=== PATIENT | female | born 1940 | race African-American/Black ===

== ENCOUNTER 2023-03-03 13:31 | Inpatient (IN) | payer OTHER ==
[2023-03-03 17:20] LABS: BASO % 0.6 % (0-2.0); EOS % 0.7 % (0-4.5); HEMATOCRIT 22.3 % (32.4-45.2); HEMOGLOBIN 7.2 GM/dL (10.7-15.3); LYMPH % 16.4 % (8-40); MCHC 32.4 g/dl (32.0-36.0); MEAN CELL VOLUME 92.7 fl (80-96); MEAN PLT VOLUME 6.9 fl (7.5-11.1); MONO % 9.9 % (3.8-10.2); NEUT % 72.4 % (42.8-82.8); PLATELET COUNT 223 10^3/uL (134-434); RDW 16.8 % (11.6-15.6)
[2023-03-03 17:27] LABS: INR 1.31 (0.83-1.09); PROTHROMBIN TIME (PATIENT) 15.1 SEC (9.7-13.0)
[2023-03-03 17:30] LABS: ACTIVATED PTT 27.7 SECONDS (25.2-36.5)
[2023-03-03 17:41] LABS: POTASSIUM 3.4 mmol/L (3.5-5.1)
[2023-03-03 17:43] LABS: ALBUMIN 2.3 g/dl (3.4-5.0); BLOOD UREA NITROGEN 38.2 mg/dL (7-18); CALCIUM 8.3 mg/dL (8.5-10.1)
[2023-03-03 17:46] LABS: CREATININE 4.3 mg/dL (0.55-1.3)
[2023-03-03 17:48] LABS: BILIRUBIN,TOTAL 0.7 mg/dL (0.2-1); TOT PROT 5.8 g/dl (6.4-8.2)
[2023-03-03] MEDS ORDERED: VANCOMYCIN 1 GM in D5W (PRE-DOCKED) 1,000 MG/250 ML (RESTRICTED TO ID ONLY IVPB ONE (18:14)
[2023-03-03] MEDS ORDERED: VANCOMYCIN/WATER FOR INJ (PEG) 1,000 MG/200 ML BAG IVPB ONE ×2 (20:57→20:58)
[2023-03-04 10:21] LABS: BASO % 0.7 % (0-2.0); HEMATOCRIT 15.9 % (32.4-45.2); LYMPH % 21.3 % (8-40); MCH 30.8 pg (25.7-33.7); MCHC 33.6 g/dl (32.0-36.0); MEAN CELL VOLUME 91.6 fl (80-96); MEAN PLT VOLUME 7.2 fl (7.5-11.1); MONO % 11.5 % (3.8-10.2); NEUT % 65.5 % (42.8-82.8); PLATELET COUNT 229 10^3/uL (134-434); RBC 1.74 M/mm3 (3.60-5.2); RDW 16.4 % (11.6-15.6); WHITE BLOOD COUNT 3.9 K/mm3 (4.0-10.0)
[2023-03-04 10:26] LABS: HEMOGLOBIN 5.4 GM/dL (10.7-15.3)
[2023-03-04 10:46] LABS: POTASSIUM 3.7 mmol/L (3.5-5.1)
[2023-03-04 10:47] LABS: CALCIUM 8.6 mg/dL (8.5-10.1)
[2023-03-04 10:48] LABS: BLOOD UREA NITROGEN 40.5 mg/dL (7-18)
[2023-03-04 10:51] LABS: CREATININE 4.6 mg/dL (0.55-1.3)
[2023-03-04] MEDS ORDERED: BISACODYL 10 MG SUPP.RECT PR PRN (11:47)
[2023-03-04] MEDS: PIPERACILLIN/TAZOB 2.25 GM 2.25 GM in DEXTROSE 5%-WATER - 50 ML IVPB SCH ×2 (13:30→17:04)
[2023-03-04] MEDS: MIRTAZAPINE 15 MG TABLET (FP) PO SCH (21:57)
[2023-03-04] MEDS: MEMANTINE HCL 5 MG TABLET (UD) PO SCH (21:57)
[2023-03-04] MEDS: LATANOPROST 0.005% OPHTH SOLN 2.5ML BOTTLE OU SCH (21:57)
[2023-03-04] MEDS: DORZOLAMIDE 2% HCL OPHTHALMIC SOLUTION 10 ML BOTTLE OD SCH (21:58)
[2023-03-04] MEDS: BRIMONIDINE TARTRATE 0.1% OPHTHALMIC 5 ML BOTTLE OD SCH (21:58)
[2023-03-04] MEDS: MEGESTROL ACETATE 400 MG/10 ML UNIT DOSE CUP PO SCH (22:16)
[2023-03-05] MEDS: PIPERACILLIN/TAZOB 2.25 GM 2.25 GM in DEXTROSE 5%-WATER - 50 ML IVPB SCH ×3 (01:40→17:39)
[2023-03-05] MEDS ORDERED: SODIUM CHLORIDE 250 ML IV PRN (08:00)
[2023-03-05] MEDS ORDERED: EPOETIN ALFA-EPBX 10,000 UNIT/ML VIAL SQ ONE (08:00)
[2023-03-05 09:00] LABS: HEMATOCRIT 26.7 % (32.4-45.2); HEMOGLOBIN 8.8 GM/dL (10.7-15.3); MCH 29.8 pg (25.7-33.7); MCHC 33.1 g/dl (32.0-36.0); MEAN CELL VOLUME 89.9 fl (80-96); MEAN PLT VOLUME 6.6 fl (7.5-11.1); PLATELET COUNT 215 10^3/uL (134-434); RBC 2.96 M/mm3 (3.60-5.2); RDW 16.2 % (11.6-15.6); WHITE BLOOD COUNT 3.9 K/mm3 (4.0-10.0)
[2023-03-05 10:04] LABS: ANISOCYTOSIS 0; HELMET CELLS 0; HOWELL-JOLLY BODIES 0; MACROCYTOSIS 0; OVALOCYTE 0; ROULEAU 0; SICKELED CELLS 0; TARGET CELLS 0; TEAR DROP CELLS 0; TOXIC GRANULATION 0
[2023-03-05] MEDS: CITALOPRAM HYDROBROMIDE 20 MG TABLET PO SCH (12:17)
[2023-03-05] MEDS: MEMANTINE HCL 5 MG TABLET (UD) PO SCH ×2 (12:17→21:45)
[2023-03-05] MEDS: DORZOLAMIDE 2% HCL OPHTHALMIC SOLUTION 10 ML BOTTLE OD SCH ×2 (12:18→21:48)
[2023-03-05] MEDS: BRIMONIDINE TARTRATE 0.1% OPHTHALMIC 5 ML BOTTLE OD SCH ×2 (12:18→21:48)
[2023-03-05] MEDS: MEGESTROL ACETATE 400 MG/10 ML UNIT DOSE CUP PO SCH ×2 (12:22→21:47)
[2023-03-05] MEDS: ASCORBIC ACID 250 MG TABLET (FP) PO SCH (12:22)
[2023-03-05] MEDS: MULTIVIT-MINERALS ORAL LIQUID PO SCH (13:00)
[2023-03-05] MEDS: MIRTAZAPINE 15 MG TABLET (FP) PO SCH (21:45)
[2023-03-05] MEDS: LATANOPROST 0.005% OPHTH SOLN 2.5ML BOTTLE OU SCH (21:49)
[2023-03-06] MEDS: PIPERACILLIN/TAZOB 2.25 GM 2.25 GM in DEXTROSE 5%-WATER - 50 ML IVPB SCH ×3 (02:06→17:03)
[2023-03-06] MEDS ORDERED: INSULIN (LEVEMIR) 100 UNITS/ML UNITS SQ ONE (06:41)
[2023-03-06] MEDS: MEMANTINE HCL 5 MG TABLET (UD) PO SCH ×2 (09:50→22:03)
[2023-03-06] MEDS: CITALOPRAM HYDROBROMIDE 20 MG TABLET PO SCH (09:51)
[2023-03-06] MEDS: ASCORBIC ACID 250 MG TABLET (FP) PO SCH (09:51)
[2023-03-06] MEDS: MULTIVIT-MINERALS ORAL LIQUID PO SCH (09:51)
[2023-03-06] MEDS: MEGESTROL ACETATE 400 MG/10 ML UNIT DOSE CUP PO SCH ×2 (09:52→22:03)
[2023-03-06] MEDS: DORZOLAMIDE 2% HCL OPHTHALMIC SOLUTION 10 ML BOTTLE OD SCH ×2 (09:57→22:04)
[2023-03-06] MEDS: BRIMONIDINE TARTRATE 0.1% OPHTHALMIC 5 ML BOTTLE OD SCH ×2 (09:57→22:05)
[2023-03-06] MEDS: MIRTAZAPINE 15 MG TABLET (FP) PO SCH (22:03)
[2023-03-06] MEDS: LATANOPROST 0.005% OPHTH SOLN 2.5ML BOTTLE OU SCH (22:05)
[2023-03-06 22:55] VITALS: BMI 19.4
[2023-03-07] MEDS: PIPERACILLIN/TAZOB 2.25 GM 2.25 GM in DEXTROSE 5%-WATER - 50 ML IVPB SCH ×3 (02:18→18:02)
[2023-03-07 09:29] LABS: EOS % 1.4 % (0-4.5); HEMOGLOBIN 8.7 GM/dL (10.7-15.3); LYMPH % 15.9 % (8-40); MCH 30.9 pg (25.7-33.7); MCHC 33.6 g/dl (32.0-36.0); MEAN CELL VOLUME 92.2 fl (80-96); MONO % 10.4 % (3.8-10.2); NEUT % 71.3 % (42.8-82.8); PLATELET COUNT 183 10^3/uL (134-434); RBC 2.82 M/mm3 (3.60-5.2); WHITE BLOOD COUNT 4.4 K/mm3 (4.0-10.0)
[2023-03-07 09:48] LABS: POTASSIUM 3.5 mmol/L (3.5-5.1)
[2023-03-07 10:09] LABS: CREATININE 4.3 mg/dL (0.55-1.3)
[2023-03-07] MEDS: MEMANTINE HCL 5 MG TABLET (UD) PO SCH ×2 (10:25→22:41)
[2023-03-07] MEDS: ASCORBIC ACID 250 MG TABLET (FP) PO SCH (10:25)
[2023-03-07] MEDS: MEGESTROL ACETATE 400 MG/10 ML UNIT DOSE CUP PO SCH ×2 (10:26→22:40)
[2023-03-07] MEDS: MULTIVIT-MINERALS ORAL LIQUID PO SCH (10:26)
[2023-03-07] MEDS: CITALOPRAM HYDROBROMIDE 20 MG TABLET PO SCH (10:26)
[2023-03-07] MEDS: DORZOLAMIDE 2% HCL OPHTHALMIC SOLUTION 10 ML BOTTLE OD SCH ×2 (10:32→22:40)
[2023-03-07] MEDS: BRIMONIDINE TARTRATE 0.1% OPHTHALMIC 5 ML BOTTLE OD SCH ×2 (10:32→22:40)
[2023-03-07] MEDS ORDERED: LIDOCAINE HCL 1%, 10 MG/ML (10ML VIAL) MDV ONE (17:57)
[2023-03-07] MEDS ORDERED: HEPARIN NA (PORCINE) 5,000 UNITS/ML 1ML VIAL ONE (17:57)
[2023-03-07] MEDS ORDERED: PROPOFOL 20 ML ONE (18:49)
[2023-03-07] MEDS ORDERED: LIDOCAINE HCL 1%, 10 MG/ML (20ML VIAL) NR ONE (19:03)
[2023-03-07] MEDS ORDERED: ONDANSETRON 4 MG/2 ML VIAL IVPUSH PRN (19:48)
[2023-03-07] MEDS ORDERED: LACTATED RINGERS SOLUTION 1,000 ML IV SCH (20:00)
[2023-03-07] MEDS ORDERED: BISACODYL 10 MG SUPP.RECT PR PRN (20:49)
[2023-03-07] MEDS: LATANOPROST 0.005% OPHTH SOLN 2.5ML BOTTLE OU SCH (22:40)
[2023-03-07] MEDS: MIRTAZAPINE 15 MG TABLET (FP) PO SCH (22:41)
[2023-03-08] MEDS: PIPERACILLIN/TAZOB 2.25 GM 2.25 GM in DEXTROSE 5%-WATER - 50 ML IVPB SCH ×2 (01:14→10:00)
[2023-03-08] MEDS ORDERED: INSULIN (LEVEMIR) 100 UNITS/ML UNITS SQ ONE (06:49)
[2023-03-08] MEDS ORDERED: INSULIN (NOVOLOG) ASPART 100 UNITS/ML 10ML VIAL ONE (06:49)
[2023-03-08] MEDS ORDERED: SODIUM CHLORIDE 250 ML IV PRN (08:21)
[2023-03-08] MEDS ORDERED: EPOETIN ALFA-EPBX 4,000 UNIT/ML VIAL IVPUSH ONE (09:15)
[2023-03-08] MEDS: DORZOLAMIDE 2% HCL OPHTHALMIC SOLUTION 10 ML BOTTLE OD SCH ×2 (10:00→22:01)
[2023-03-08] MEDS: CITALOPRAM HYDROBROMIDE 20 MG TABLET PO SCH (10:00)
[2023-03-08] MEDS: ASCORBIC ACID 250 MG TABLET (FP) PO SCH (10:00)
[2023-03-08] MEDS: BRIMONIDINE TARTRATE 0.1% OPHTHALMIC 5 ML BOTTLE OD SCH ×2 (10:00→22:01)
[2023-03-08] MEDS: MEGESTROL ACETATE 400 MG/10 ML UNIT DOSE CUP PO SCH ×2 (10:00→22:00)
[2023-03-08] MEDS: MULTIVIT-MINERALS ORAL LIQUID PO SCH (10:00)
[2023-03-08] MEDS: MEMANTINE HCL 5 MG TABLET (UD) PO SCH ×2 (10:00→21:59)
[2023-03-08] MEDS: MIRTAZAPINE 15 MG TABLET (FP) PO SCH (22:00)
[2023-03-08] MEDS: LATANOPROST 0.005% OPHTH SOLN 2.5ML BOTTLE OU SCH (22:01)
[2023-03-09] MEDS: CITALOPRAM HYDROBROMIDE 20 MG TABLET PO SCH (09:59)
[2023-03-09] MEDS: MEMANTINE HCL 5 MG TABLET (UD) PO SCH ×2 (09:59→22:38)
[2023-03-09] MEDS: ASCORBIC ACID 250 MG TABLET (FP) PO SCH (09:59)
[2023-03-09] MEDS: MULTIVIT-MINERALS ORAL LIQUID PO SCH (10:00)
[2023-03-09] MEDS: BRIMONIDINE TARTRATE 0.1% OPHTHALMIC 5 ML BOTTLE OD SCH ×2 (10:02→22:41)
[2023-03-09] MEDS: DORZOLAMIDE 2% HCL OPHTHALMIC SOLUTION 10 ML BOTTLE OD SCH ×2 (10:03→22:41)
[2023-03-09] MEDS: MEGESTROL ACETATE 400 MG/10 ML UNIT DOSE CUP PO SCH ×2 (11:39→22:44)
[2023-03-09] MEDS: MIRTAZAPINE 15 MG TABLET (FP) PO SCH (22:39)
[2023-03-09] MEDS: LATANOPROST 0.005% OPHTH SOLN 2.5ML BOTTLE OU SCH (22:40)
[2023-03-10] MEDS ORDERED: SODIUM CHLORIDE 250 ML IV PRN (07:26)
[2023-03-10] MEDS ORDERED: EPOETIN ALFA-EPBX 10,000 UNIT/ML VIAL IVPUSH ONE (07:30)
[2023-03-10 09:31] LABS: HEMATOCRIT 23.9 % (32.4-45.2); HEMOGLOBIN 7.8 GM/dL (10.7-15.3); MCHC 32.7 g/dl (32.0-36.0); MEAN CELL VOLUME 91.8 fl (80-96); PLATELET COUNT 175 10^3/uL (134-434); RDW 16.2 % (11.6-15.6); WHITE BLOOD COUNT 3.9 K/mm3 (4.0-10.0)
[2023-03-10 09:48] LABS: CHLORIDE 104 mmol/L (98-107); POTASSIUM 3.1 mmol/L (3.5-5.1); SODIUM 144 mmol/L (136-145)
[2023-03-10 09:50] LABS: CALCIUM 8.9 mg/dL (8.5-10.1)
[2023-03-10 09:51] LABS: ALBUMIN 2.3 g/dl (3.4-5.0); ANION GAP 8 MMOL/L (8-16); BLOOD UREA NITROGEN 27.8 mg/dL (7-18); CO2 31 mmol/L (21-32); GLUCOSE,RANDOM 110 mg/dL (74-106)
[2023-03-10 09:54] LABS: SGOT/AST 9 U/L (15-37); SGPT/ALT < 6 U/L (13-61)
[2023-03-10 09:55] LABS: TOT PROT 5.6 g/dl (6.4-8.2)
[2023-03-10 09:56] LABS: BILIRUBIN,TOTAL 0.7 mg/dL (0.2-1)
[2023-03-10 09:57] LABS: ALK PHOS 45 U/L (45-117)
[2023-03-10] MEDS: ASCORBIC ACID 250 MG TABLET (FP) PO SCH (13:57)
[2023-03-10] MEDS: CITALOPRAM HYDROBROMIDE 20 MG TABLET PO SCH (13:57)
[2023-03-10] MEDS: MULTIVIT-MINERALS ORAL LIQUID PO SCH (13:57)
[2023-03-10] MEDS: MEMANTINE HCL 5 MG TABLET (UD) PO SCH ×2 (13:58→21:22)
[2023-03-10] MEDS: DORZOLAMIDE 2% HCL OPHTHALMIC SOLUTION 10 ML BOTTLE OD SCH ×2 (13:59→21:22)
[2023-03-10] MEDS: BRIMONIDINE TARTRATE 0.1% OPHTHALMIC 5 ML BOTTLE OD SCH ×2 (13:59→21:22)
[2023-03-10] MEDS: MEGESTROL ACETATE 400 MG/10 ML UNIT DOSE CUP PO SCH ×2 (13:59→21:22)
[2023-03-10] MEDS: MIRTAZAPINE 15 MG TABLET (FP) PO SCH (21:22)
[2023-03-10] MEDS: LATANOPROST 0.005% OPHTH SOLN 2.5ML BOTTLE OU SCH (21:22)
[2023-03-11] MEDS: MEGESTROL ACETATE 400 MG/10 ML UNIT DOSE CUP PO SCH ×2 (09:27→22:59)
[2023-03-11] MEDS: MEMANTINE HCL 5 MG TABLET (UD) PO SCH ×2 (09:27→22:13)
[2023-03-11] MEDS: AMINO ACIDS/PROTEIN HYDROLYS 30 ML LIQUID.PKT PO SCH ×2 (09:27→17:09)
[2023-03-11] MEDS: CITALOPRAM HYDROBROMIDE 20 MG TABLET PO SCH (09:27)
[2023-03-11] MEDS: MULTIVIT-MINERALS ORAL LIQUID PO SCH (09:27)
[2023-03-11] MEDS: ASCORBIC ACID 250 MG TABLET (FP) PO SCH (09:27)
[2023-03-11] MEDS: DORZOLAMIDE 2% HCL OPHTHALMIC SOLUTION 10 ML BOTTLE OD SCH ×2 (09:28→22:20)
[2023-03-11] MEDS: BRIMONIDINE TARTRATE 0.1% OPHTHALMIC 5 ML BOTTLE OD SCH ×2 (09:28→22:16)
[2023-03-11] MEDS: MIRTAZAPINE 15 MG TABLET (FP) PO SCH (22:13)
[2023-03-11] MEDS: LATANOPROST 0.005% OPHTH SOLN 2.5ML BOTTLE OU SCH (22:17)
[2023-03-12] MEDS: AMINO ACIDS/PROTEIN HYDROLYS 30 ML LIQUID.PKT PO SCH ×2 (08:43→17:16)
[2023-03-12] MEDS: CITALOPRAM HYDROBROMIDE 20 MG TABLET PO SCH (09:57)
[2023-03-12] MEDS: MEMANTINE HCL 5 MG TABLET (UD) PO SCH ×2 (09:57→21:50)
[2023-03-12] MEDS: ASCORBIC ACID 250 MG TABLET (FP) PO SCH (09:57)
[2023-03-12] MEDS: MULTIVIT-MINERALS ORAL LIQUID PO SCH (09:57)
[2023-03-12] MEDS: MEGESTROL ACETATE 400 MG/10 ML UNIT DOSE CUP PO SCH ×2 (10:00→21:49)
[2023-03-12] MEDS: BRIMONIDINE TARTRATE 0.1% OPHTHALMIC 5 ML BOTTLE OD SCH ×2 (10:00→21:50)
[2023-03-12] MEDS: DORZOLAMIDE 2% HCL OPHTHALMIC SOLUTION 10 ML BOTTLE OD SCH ×2 (10:01→21:50)
[2023-03-12] MEDS ORDERED: SODIUM CHLORIDE 250 ML IV PRN (10:26)
[2023-03-12 12:13] LABS: HEMATOCRIT 24.8 % (32.4-45.2); HEMOGLOBIN 8.1 GM/dL (10.7-15.3); MCHC 32.5 g/dl (32.0-36.0); MEAN CELL VOLUME 92.3 fl (80-96); MEAN PLT VOLUME 7.3 fl (7.5-11.1); PLATELET COUNT 171 10^3/uL (134-434); RBC 2.69 M/mm3 (3.60-5.2); RDW 15.8 % (11.6-15.6); WHITE BLOOD COUNT 5.3 K/mm3 (4.0-10.0)
[2023-03-12 12:26] LABS: POTASSIUM 3.2 mmol/L (3.5-5.1)
[2023-03-12 12:27] LABS: CALCIUM 8.7 mg/dL (8.5-10.1)
[2023-03-12 12:31] LABS: CREATININE 3.8 mg/dL (0.55-1.3)
[2023-03-12] MEDS: MIRTAZAPINE 15 MG TABLET (FP) PO SCH (21:49)
[2023-03-12] MEDS: LATANOPROST 0.005% OPHTH SOLN 2.5ML BOTTLE OU SCH (21:51)
[2023-03-13] MEDS: AMINO ACIDS/PROTEIN HYDROLYS 30 ML LIQUID.PKT PO SCH ×2 (08:48→17:30)
[2023-03-13] MEDS: MULTIVIT-MINERALS ORAL LIQUID PO SCH (09:47)
[2023-03-13] MEDS: MEMANTINE HCL 5 MG TABLET (UD) PO SCH ×2 (09:47→23:02)
[2023-03-13] MEDS: MEGESTROL ACETATE 400 MG/10 ML UNIT DOSE CUP PO SCH ×2 (09:47→23:04)
[2023-03-13] MEDS: CITALOPRAM HYDROBROMIDE 20 MG TABLET PO SCH (09:47)
[2023-03-13] MEDS: ASCORBIC ACID 250 MG TABLET (FP) PO SCH (09:48)
[2023-03-13] MEDS: DORZOLAMIDE 2% HCL OPHTHALMIC SOLUTION 10 ML BOTTLE OD SCH ×2 (09:50→23:06)
[2023-03-13] MEDS: BRIMONIDINE TARTRATE 0.1% OPHTHALMIC 5 ML BOTTLE OD SCH ×2 (09:50→23:15)
[2023-03-13] MEDS: MIRTAZAPINE 15 MG TABLET (FP) PO SCH (23:04)
[2023-03-13] MEDS: LATANOPROST 0.005% OPHTH SOLN 2.5ML BOTTLE OU SCH (23:06)
[2023-03-14] MEDS: AMINO ACIDS/PROTEIN HYDROLYS 30 ML LIQUID.PKT PO SCH ×2 (08:24→17:37)
[2023-03-14] MEDS: ASCORBIC ACID 250 MG TABLET (FP) PO SCH (09:21)
[2023-03-14] MEDS: MEGESTROL ACETATE 400 MG/10 ML UNIT DOSE CUP PO SCH ×2 (09:21→21:37)
[2023-03-14] MEDS: MEMANTINE HCL 5 MG TABLET (UD) PO SCH ×3 (09:21→21:35)
[2023-03-14] MEDS: CITALOPRAM HYDROBROMIDE 20 MG TABLET PO SCH (09:21)
[2023-03-14] MEDS: MULTIVIT-MINERALS ORAL LIQUID PO SCH (09:22)
[2023-03-14] MEDS: BRIMONIDINE TARTRATE 0.1% OPHTHALMIC 5 ML BOTTLE OD SCH ×2 (09:23→21:35)
[2023-03-14] MEDS: DORZOLAMIDE 2% HCL OPHTHALMIC SOLUTION 10 ML BOTTLE OD SCH ×2 (09:23→21:36)
[2023-03-14] MEDS ORDERED: HEPARIN NA (PORCINE) 5,000 UNITS/ML 1ML VIAL ONE (17:40)
[2023-03-14] MEDS ORDERED: LIDOCAINE HCL 1%, 10 MG/ML (10ML VIAL) MDV ONE (17:40)
[2023-03-14] MEDS ORDERED: PROPOFOL 40 ML ONE (17:55)
[2023-03-14] MEDS ORDERED: ceFAZolin SODIUM 1 GM VIAL IVPB ONE (18:51)
[2023-03-14 19:08] LABS: INR 1.3 (0.83-1.09)
[2023-03-14] MEDS ORDERED: POVIDONE-IODINE OINTMENT 10% - 28.4 GM TUBE ONE (19:10)
[2023-03-14] MEDS ORDERED: LIDOCAINE HCL 1%, 10 MG/ML (20ML VIAL) INF ONE ×2 (19:20)
[2023-03-14] MEDS ORDERED: SODIUM CHLORIDE 250 ML IV PRN (20:31)
[2023-03-14] MEDS ORDERED: BISACODYL 10 MG SUPP.RECT PR PRN (20:31)
[2023-03-14] MEDS: MIRTAZAPINE 15 MG TABLET (FP) PO SCH (21:34)
[2023-03-14] MEDS: LATANOPROST 0.005% OPHTH SOLN 2.5ML BOTTLE OU SCH (21:38)
[2023-03-14] MEDS: SODIUM CHLORIDE 1,000 ML IV SCH (21:39)
[2023-03-15] MEDS: AMINO ACIDS/PROTEIN HYDROLYS 30 ML LIQUID.PKT PO SCH ×2 (08:16→17:31)
[2023-03-15 10:00] LABS: BASO % 0.6 % (0-2.0); EOS % 0.6 % (0-4.5); HEMATOCRIT 20.7 % (32.4-45.2); MCH 30.6 pg (25.7-33.7); MCHC 32.4 g/dl (32.0-36.0); MEAN CELL VOLUME 94.5 fl (80-96); MEAN PLT VOLUME 7.2 fl (7.5-11.1); MONO % 10.1 % (3.8-10.2); NEUT % 79.7 % (42.8-82.8); PLATELET COUNT 136 10^3/uL (134-434); RBC 2.19 M/mm3 (3.60-5.2); RDW 16.6 % (11.6-15.6); WHITE BLOOD COUNT 5.3 K/mm3 (4.0-10.0)
[2023-03-15 10:13] LABS: HEMOGLOBIN 6.7 GM/dL (10.7-15.3)
[2023-03-15 10:19] LABS: POTASSIUM 3.4 mmol/L (3.5-5.1)
[2023-03-15 10:21] LABS: CALCIUM 8.2 mg/dL (8.5-10.1)
[2023-03-15 10:22] LABS: BLOOD UREA NITROGEN 27.6 mg/dL (7-18)
[2023-03-15 10:24] LABS: CREATININE 3.1 mg/dL (0.55-1.3)
[2023-03-15 10:26] LABS: BILIRUBIN,TOTAL 0.7 mg/dL (0.2-1); TOT PROT 5.1 g/dl (6.4-8.2)
[2023-03-15] MEDS ORDERED: SODIUM CHLORIDE 250 ML IV PRN (11:38)
[2023-03-15 12:27] LABS: HEMATOCRIT 22.6 % (32.4-45.2); HEMOGLOBIN 7.4 GM/dL (10.7-15.3); MCH 30.7 pg (25.7-33.7); MCHC 32.6 g/dl (32.0-36.0); MEAN CELL VOLUME 93.9 fl (80-96); MEAN PLT VOLUME 7.2 fl (7.5-11.1); PLATELET COUNT 168 10^3/uL (134-434); RBC 2.41 M/mm3 (3.60-5.2); WHITE BLOOD COUNT 7.7 K/mm3 (4.0-10.0)
[2023-03-15] MEDS ORDERED: EPOETIN ALFA-EPBX 10,000 UNIT/ML VIAL SQ ONE (12:30)
[2023-03-15] MEDS: CITALOPRAM HYDROBROMIDE 20 MG TABLET PO SCH (12:57)
[2023-03-15] MEDS: MULTIVIT-MINERALS ORAL LIQUID PO SCH (12:57)
[2023-03-15] MEDS: ASCORBIC ACID 250 MG TABLET (FP) PO SCH (12:57)
[2023-03-15] MEDS: MEMANTINE HCL 5 MG TABLET (UD) PO SCH ×2 (12:57→22:00)
[2023-03-15] MEDS: MEGESTROL ACETATE 400 MG/10 ML UNIT DOSE CUP PO SCH ×2 (12:58→22:09)
[2023-03-15] MEDS: DORZOLAMIDE 2% HCL OPHTHALMIC SOLUTION 10 ML BOTTLE OD SCH ×2 (13:01→21:58)
[2023-03-15] MEDS: BRIMONIDINE TARTRATE 0.1% OPHTHALMIC 5 ML BOTTLE OD SCH ×3 (13:02→21:59)
[2023-03-15] MEDS: SODIUM CHLORIDE 1,000 ML IV SCH (21:57)
[2023-03-15] MEDS: LATANOPROST 0.005% OPHTH SOLN 2.5ML BOTTLE OU SCH (21:58)
[2023-03-15] MEDS: MIRTAZAPINE 15 MG TABLET (FP) PO SCH (22:00)
[2023-03-16] MEDS: AMINO ACIDS/PROTEIN HYDROLYS 30 ML LIQUID.PKT PO SCH ×3 (08:00→18:00)
[2023-03-16] MEDS: ASCORBIC ACID 250 MG TABLET (FP) PO SCH (09:03)
[2023-03-16] MEDS: MEMANTINE HCL 5 MG TABLET (UD) PO SCH ×3 (09:03→22:07)
[2023-03-16] MEDS: MULTIVIT-MINERALS ORAL LIQUID PO SCH (09:04)
[2023-03-16] MEDS: CITALOPRAM HYDROBROMIDE 20 MG TABLET PO SCH ×2 (09:04→10:00)
[2023-03-16] MEDS: BRIMONIDINE TARTRATE 0.1% OPHTHALMIC 5 ML BOTTLE OD SCH ×2 (09:19→22:04)
[2023-03-16] MEDS: DORZOLAMIDE 2% HCL OPHTHALMIC SOLUTION 10 ML BOTTLE OD SCH ×2 (09:19→22:05)
[2023-03-16] MEDS: MEGESTROL ACETATE 400 MG/10 ML UNIT DOSE CUP PO SCH ×2 (10:00→22:08)
[2023-03-16] MEDS: LATANOPROST 0.005% OPHTH SOLN 2.5ML BOTTLE OU SCH (22:05)
[2023-03-16] MEDS: MIRTAZAPINE 15 MG TABLET (FP) PO SCH (22:07)
[2023-03-17] MEDS ORDERED: SODIUM CHLORIDE 250 ML IV PRN (09:30)
[2023-03-17] MEDS ORDERED: EPOETIN ALFA-EPBX 4,000 UNIT/ML VIAL IVPUSH ONE (10:00)
[2023-03-17] MEDS: ASCORBIC ACID 250 MG TABLET (FP) PO SCH (12:48)
[2023-03-17] MEDS: CITALOPRAM HYDROBROMIDE 20 MG TABLET PO SCH (12:49)
[2023-03-17] MEDS: MEGESTROL ACETATE 400 MG/10 ML UNIT DOSE CUP PO SCH ×2 (12:51→21:53)
[2023-03-17] MEDS: MULTIVIT-MINERALS ORAL LIQUID PO SCH (12:52)
[2023-03-17] MEDS: MEMANTINE HCL 5 MG TABLET (UD) PO SCH ×2 (12:52→21:53)
[2023-03-17] MEDS: DORZOLAMIDE 2% HCL OPHTHALMIC SOLUTION 10 ML BOTTLE OD SCH ×2 (12:53→21:52)
[2023-03-17] MEDS: BRIMONIDINE TARTRATE 0.1% OPHTHALMIC 5 ML BOTTLE OD SCH ×2 (12:53→21:52)
[2023-03-17] MEDS: AMINO ACIDS/PROTEIN HYDROLYS 30 ML LIQUID.PKT PO SCH ×2 (12:55→16:56)
[2023-03-17] MEDS ORDERED: ACETAMINOPHEN 650 MG/20.3 ML ORAL SOLUTION (CUPS) PO PRN (18:26)
[2023-03-17] MEDS: LATANOPROST 0.005% OPHTH SOLN 2.5ML BOTTLE OU SCH (21:52)
[2023-03-17] MEDS: MIRTAZAPINE 15 MG TABLET (FP) PO SCH (21:53)
[2023-03-18] MEDS: ASCORBIC ACID 250 MG TABLET (FP) PO SCH (10:01)
[2023-03-18] MEDS: AMINO ACIDS/PROTEIN HYDROLYS 30 ML LIQUID.PKT PO SCH ×2 (10:01→17:20)
[2023-03-18] MEDS: MEGESTROL ACETATE 400 MG/10 ML UNIT DOSE CUP PO SCH ×2 (10:01→21:09)
[2023-03-18] MEDS: MEMANTINE HCL 5 MG TABLET (UD) PO SCH ×2 (10:01→21:09)
[2023-03-18] MEDS: CITALOPRAM HYDROBROMIDE 20 MG TABLET PO SCH (10:01)
[2023-03-18] MEDS: MULTIVIT-MINERALS ORAL LIQUID PO SCH (10:02)
[2023-03-18] MEDS: BRIMONIDINE TARTRATE 0.1% OPHTHALMIC 5 ML BOTTLE OD SCH ×2 (10:02→21:09)
[2023-03-18] MEDS: DORZOLAMIDE 2% HCL OPHTHALMIC SOLUTION 10 ML BOTTLE OD SCH ×2 (10:02→21:09)
[2023-03-18] MEDS ORDERED: VANCOMYCIN/WATER FOR INJ (PEG) 1,000 MG/200 ML BAG IVPB ONE (18:00)
[2023-03-18] MEDS: MIRTAZAPINE 15 MG TABLET (FP) PO SCH (21:09)
[2023-03-18] MEDS: LATANOPROST 0.005% OPHTH SOLN 2.5ML BOTTLE OU SCH (21:09)
[2023-03-19] MEDS ORDERED: SODIUM CHLORIDE 250 ML IV PRN (07:26)
[2023-03-19] MEDS ORDERED: EPOETIN ALFA-EPBX 4,000 UNIT/ML VIAL SQ ONE (07:30)
[2023-03-19] MEDS: AMINO ACIDS/PROTEIN HYDROLYS 30 ML LIQUID.PKT PO SCH ×2 (07:50→16:44)
[2023-03-19 09:28] LABS: BASO % 0.7 % (0-2.0); EOS % 0.5 % (0-4.5); HEMATOCRIT 21.8 % (32.4-45.2); HEMOGLOBIN 7.3 GM/dL (10.7-15.3); LYMPH % 8.2 % (8-40); MCH 30.9 pg (25.7-33.7); MCHC 33.6 g/dl (32.0-36.0); MEAN CELL VOLUME 91.8 fl (80-96); MONO % 8.1 % (3.8-10.2); NEUT % 82.5 % (42.8-82.8); PLATELET COUNT 197 10^3/uL (134-434); RBC 2.37 M/mm3 (3.60-5.2); RDW 17.3 % (11.6-15.6)
[2023-03-19 09:49] LABS: CHLORIDE 104 mmol/L (98-107); SODIUM 141 mmol/L (136-145)
[2023-03-19 09:54] LABS: CALCIUM 8.7 mg/dL (8.5-10.1)
[2023-03-19 09:55] LABS: ALBUMIN 2.2 g/dl (3.4-5.0); ANION GAP 7 MMOL/L (8-16); CO2 30 mmol/L (21-32); GLUCOSE,RANDOM 86 mg/dL (74-106)
[2023-03-19 09:58] LABS: CREATININE 3.7 mg/dL (0.55-1.3); SGOT/AST 9 U/L (15-37); SGPT/ALT < 6 U/L (13-61)
[2023-03-19 10:00] LABS: TOT PROT 5.9 g/dl (6.4-8.2)
[2023-03-19 10:01] LABS: ALK PHOS 57 U/L (45-117)
[2023-03-19] MEDS: CITALOPRAM HYDROBROMIDE 20 MG TABLET PO SCH (13:06)
[2023-03-19] MEDS: BRIMONIDINE TARTRATE 0.1% OPHTHALMIC 5 ML BOTTLE OD SCH ×2 (13:06→23:06)
[2023-03-19] MEDS: MULTIVIT-MINERALS ORAL LIQUID PO SCH (13:07)
[2023-03-19] MEDS: MEMANTINE HCL 5 MG TABLET (UD) PO SCH ×2 (13:07→23:06)
[2023-03-19] MEDS: MEGESTROL ACETATE 400 MG/10 ML UNIT DOSE CUP PO SCH ×2 (13:07→23:06)
[2023-03-19] MEDS: DORZOLAMIDE 2% HCL OPHTHALMIC SOLUTION 10 ML BOTTLE OD SCH ×2 (13:07→23:06)
[2023-03-19] MEDS: ASCORBIC ACID 250 MG TABLET (FP) PO SCH (13:08)
[2023-03-19] MEDS: MIRTAZAPINE 15 MG TABLET (FP) PO SCH (23:06)
[2023-03-19] MEDS: LATANOPROST 0.005% OPHTH SOLN 2.5ML BOTTLE OU SCH (23:06)
[2023-03-20] MEDS: MULTIVIT-MINERALS ORAL LIQUID PO SCH (10:20)
[2023-03-20] MEDS: ASCORBIC ACID 250 MG TABLET (FP) PO SCH (10:21)
[2023-03-20] MEDS: MEGESTROL ACETATE 400 MG/10 ML UNIT DOSE CUP PO SCH ×2 (10:21→22:03)
[2023-03-20] MEDS: AMINO ACIDS/PROTEIN HYDROLYS 30 ML LIQUID.PKT PO SCH ×3 (10:21→17:31)
[2023-03-20] MEDS: MEMANTINE HCL 5 MG TABLET (UD) PO SCH ×2 (10:21→22:03)
[2023-03-20] MEDS: CITALOPRAM HYDROBROMIDE 20 MG TABLET PO SCH (10:21)
[2023-03-20] MEDS: BRIMONIDINE TARTRATE 0.1% OPHTHALMIC 5 ML BOTTLE OD SCH ×2 (10:22→22:06)
[2023-03-20] MEDS: DORZOLAMIDE 2% HCL OPHTHALMIC SOLUTION 10 ML BOTTLE OD SCH ×2 (10:22→22:06)
[2023-03-20] MEDS: MIRTAZAPINE 15 MG TABLET (FP) PO SCH (22:03)
[2023-03-20] MEDS: LATANOPROST 0.005% OPHTH SOLN 2.5ML BOTTLE OU SCH (22:07)
[2023-03-21] MEDS: MULTIVIT-MINERALS ORAL LIQUID PO SCH (11:32)
[2023-03-21] MEDS: MEGESTROL ACETATE 400 MG/10 ML UNIT DOSE CUP PO SCH ×2 (11:32→22:57)
[2023-03-21] MEDS: AMINO ACIDS/PROTEIN HYDROLYS 30 ML LIQUID.PKT PO SCH ×2 (11:32→17:40)
[2023-03-21] MEDS: CITALOPRAM HYDROBROMIDE 20 MG TABLET PO SCH (11:32)
[2023-03-21] MEDS: MEMANTINE HCL 5 MG TABLET (UD) PO SCH ×2 (11:32→22:54)
[2023-03-21] MEDS: ASCORBIC ACID 250 MG TABLET (FP) PO SCH (11:32)
[2023-03-21] MEDS: BRIMONIDINE TARTRATE 0.1% OPHTHALMIC 5 ML BOTTLE OD SCH ×2 (11:35→22:54)
[2023-03-21] MEDS: DORZOLAMIDE 2% HCL OPHTHALMIC SOLUTION 10 ML BOTTLE OD SCH ×2 (11:35→22:54)
[2023-03-21] MEDS: MIRTAZAPINE 15 MG TABLET (FP) PO SCH (22:54)
[2023-03-21] MEDS: LATANOPROST 0.005% OPHTH SOLN 2.5ML BOTTLE OU SCH (22:55)
[2023-03-22] MEDS ORDERED: SODIUM CHLORIDE 250 ML IV PRN (10:36)
[2023-03-22] MEDS ORDERED: EPOETIN ALFA-EPBX 10,000 UNIT/ML VIAL IVPUSH ONE (11:00)
[2023-03-22] MEDS: BRIMONIDINE TARTRATE 0.1% OPHTHALMIC 5 ML BOTTLE OD SCH ×2 (14:04→22:12)
[2023-03-22] MEDS: AMINO ACIDS/PROTEIN HYDROLYS 30 ML LIQUID.PKT PO SCH ×2 (14:04→18:48)
[2023-03-22] MEDS: DORZOLAMIDE 2% HCL OPHTHALMIC SOLUTION 10 ML BOTTLE OD SCH ×2 (14:05→22:12)
[2023-03-22] MEDS: MEGESTROL ACETATE 400 MG/10 ML UNIT DOSE CUP PO SCH ×2 (14:05→22:13)
[2023-03-22] MEDS: MEMANTINE HCL 5 MG TABLET (UD) PO SCH ×2 (14:05→22:13)
[2023-03-22] MEDS: ASCORBIC ACID 250 MG TABLET (FP) PO SCH (14:06)
[2023-03-22] MEDS: MULTIVIT-MINERALS ORAL LIQUID PO SCH (14:06)
[2023-03-22] MEDS: CITALOPRAM HYDROBROMIDE 20 MG TABLET PO SCH (14:06)
[2023-03-22 17:30] LABS: HEMATOCRIT 19.8 % (32.4-45.2); MCH 31.2 pg (25.7-33.7); MCHC 32.9 g/dl (32.0-36.0); MEAN CELL VOLUME 94.8 fl (80-96); MEAN PLT VOLUME 6.3 fl (7.5-11.1); PLATELET COUNT 193 10^3/uL (134-434); RBC 2.09 M/mm3 (3.60-5.2); RDW 18.7 % (11.6-15.6); WHITE BLOOD COUNT 6.6 K/mm3 (4.0-10.0)
[2023-03-22 17:50] LABS: POTASSIUM 3.5 mmol/L (3.5-5.1)
[2023-03-22 17:51] LABS: CALCIUM 8.7 mg/dL (8.5-10.1)
[2023-03-22 17:53] LABS: HEMOGLOBIN 6.5 GM/dL (10.7-15.3)
[2023-03-22 17:55] LABS: CREATININE 1.7 mg/dL (0.55-1.3)
[2023-03-22 18:01] LABS: BLOOD UREA NITROGEN 14.4 mg/dL (7-18)
[2023-03-22] MEDS: LATANOPROST 0.005% OPHTH SOLN 2.5ML BOTTLE OU SCH (22:12)
[2023-03-22] MEDS: MIRTAZAPINE 15 MG TABLET (FP) PO SCH (22:13)
[2023-03-23] MEDS: AMINO ACIDS/PROTEIN HYDROLYS 30 ML LIQUID.PKT PO SCH ×3 (07:49→17:55)
[2023-03-23] MEDS: ASCORBIC ACID 250 MG TABLET (FP) PO SCH (10:38)
[2023-03-23] MEDS: MEGESTROL ACETATE 400 MG/10 ML UNIT DOSE CUP PO SCH ×2 (10:38→23:08)
[2023-03-23] MEDS: MULTIVIT-MINERALS ORAL LIQUID PO SCH (10:38)
[2023-03-23] MEDS: MEMANTINE HCL 5 MG TABLET (UD) PO SCH ×2 (10:39→23:08)
[2023-03-23] MEDS: CITALOPRAM HYDROBROMIDE 20 MG TABLET PO SCH (10:39)
[2023-03-23] MEDS: DORZOLAMIDE 2% HCL OPHTHALMIC SOLUTION 10 ML BOTTLE OD SCH ×2 (10:39→23:09)
[2023-03-23] MEDS: BRIMONIDINE TARTRATE 0.1% OPHTHALMIC 5 ML BOTTLE OD SCH ×2 (10:40→23:09)
[2023-03-23] MEDS ORDERED: SODIUM CHLORIDE 250 ML IV PRN (18:01)
[2023-03-23] MEDS: MIRTAZAPINE 15 MG TABLET (FP) PO SCH (23:08)
[2023-03-23] MEDS: LATANOPROST 0.005% OPHTH SOLN 2.5ML BOTTLE OU SCH (23:10)
[2023-03-24] MEDS: AMINO ACIDS/PROTEIN HYDROLYS 30 ML LIQUID.PKT PO SCH ×2 (07:54→17:17)
[2023-03-24 08:53] LABS: BASO % 0.4 % (0-2.0); EOS % 0.7 % (0-4.5); HEMATOCRIT 24.3 % (32.4-45.2); HEMOGLOBIN 8.1 GM/dL (10.7-15.3); LYMPH % 10.8 % (8-40); MCH 31.3 pg (25.7-33.7); MCHC 33.3 g/dl (32.0-36.0); MEAN CELL VOLUME 94.2 fl (80-96); MEAN PLT VOLUME 6.5 fl (7.5-11.1); MONO % 8.2 % (3.8-10.2); NEUT % 79.9 % (42.8-82.8); PLATELET COUNT 207 10^3/uL (134-434); RBC 2.58 M/mm3 (3.60-5.2); RDW 17.8 % (11.6-15.6); WHITE BLOOD COUNT 6.1 K/mm3 (4.0-10.0)
[2023-03-24] MEDS: MULTIVIT-MINERALS ORAL LIQUID PO SCH (10:11)
[2023-03-24] MEDS: DORZOLAMIDE 2% HCL OPHTHALMIC SOLUTION 10 ML BOTTLE OD SCH ×2 (10:11→22:26)
[2023-03-24] MEDS: CITALOPRAM HYDROBROMIDE 20 MG TABLET PO SCH (10:11)
[2023-03-24] MEDS: MEGESTROL ACETATE 400 MG/10 ML UNIT DOSE CUP PO SCH ×2 (10:11→22:24)
[2023-03-24] MEDS: MEMANTINE HCL 5 MG TABLET (UD) PO SCH ×2 (10:11→22:24)
[2023-03-24] MEDS: ASCORBIC ACID 250 MG TABLET (FP) PO SCH (10:11)
[2023-03-24] MEDS: BRIMONIDINE TARTRATE 0.1% OPHTHALMIC 5 ML BOTTLE OD SCH ×2 (10:12→22:27)
[2023-03-24] MEDS: MIRTAZAPINE 15 MG TABLET (FP) PO SCH (22:24)
[2023-03-24] MEDS: LATANOPROST 0.005% OPHTH SOLN 2.5ML BOTTLE OU SCH (22:27)
[2023-03-25] MEDS: MEGESTROL ACETATE 400 MG/10 ML UNIT DOSE CUP PO SCH ×2 (12:41→21:24)
[2023-03-25] MEDS: CITALOPRAM HYDROBROMIDE 20 MG TABLET PO SCH (12:41)
[2023-03-25] MEDS: MULTIVIT-MINERALS ORAL LIQUID PO SCH (12:41)
[2023-03-25] MEDS: AMINO ACIDS/PROTEIN HYDROLYS 30 ML LIQUID.PKT PO SCH ×2 (12:41→17:47)
[2023-03-25] MEDS: ASCORBIC ACID 250 MG TABLET (FP) PO SCH (12:42)
[2023-03-25] MEDS: MEMANTINE HCL 5 MG TABLET (UD) PO SCH ×2 (12:42→21:24)
[2023-03-25] MEDS: BRIMONIDINE TARTRATE 0.1% OPHTHALMIC 5 ML BOTTLE OD SCH ×2 (14:24→21:22)
[2023-03-25] MEDS: DORZOLAMIDE 2% HCL OPHTHALMIC SOLUTION 10 ML BOTTLE OD SCH ×2 (14:24→21:24)
[2023-03-25] MEDS: LATANOPROST 0.005% OPHTH SOLN 2.5ML BOTTLE OU SCH (21:24)
[2023-03-25] MEDS: MIRTAZAPINE 15 MG TABLET (FP) PO SCH (21:24)
[2023-03-25] MEDS ORDERED: SODIUM CHLORIDE 250 ML IV PRN (22:23)
[2023-03-26 10:07] LABS: HEMATOCRIT 27.3 % (32.4-45.2); HEMOGLOBIN 8.8 GM/dL (10.7-15.3); MCH 31.4 pg (25.7-33.7); MCHC 32.4 g/dl (32.0-36.0); MEAN CELL VOLUME 96.9 fl (80-96); MEAN PLT VOLUME 6.8 fl (7.5-11.1); PLATELET COUNT 212 10^3/uL (134-434); RBC 2.81 M/mm3 (3.60-5.2); RDW 17.7 % (11.6-15.6); WHITE BLOOD COUNT 7.4 K/mm3 (4.0-10.0)
[2023-03-26 10:24] LABS: POTASSIUM 4.1 mmol/L (3.5-5.1)
[2023-03-26 10:26] LABS: CALCIUM 8.5 mg/dL (8.5-10.1)
[2023-03-26 10:30] LABS: CREATININE 3.9 mg/dL (0.55-1.3)
[2023-03-26] MEDS ORDERED: EPOETIN ALFA-EPBX 4,000 UNIT/ML VIAL IVPUSH ONE (10:30)
[2023-03-26 10:38] LABS: BLOOD UREA NITROGEN 47.1 mg/dL (7-18)
[2023-03-26] MEDS: CITALOPRAM HYDROBROMIDE 20 MG TABLET PO SCH (13:27)
[2023-03-26] MEDS: MEGESTROL ACETATE 400 MG/10 ML UNIT DOSE CUP PO SCH ×2 (13:27→23:14)
[2023-03-26] MEDS: MULTIVIT-MINERALS ORAL LIQUID PO SCH (13:27)
[2023-03-26] MEDS: ASCORBIC ACID 250 MG TABLET (FP) PO SCH (13:27)
[2023-03-26] MEDS: MEMANTINE HCL 5 MG TABLET (UD) PO SCH ×2 (13:27→23:14)
[2023-03-26] MEDS: DORZOLAMIDE 2% HCL OPHTHALMIC SOLUTION 10 ML BOTTLE OD SCH ×2 (13:28→23:08)
[2023-03-26] MEDS: BRIMONIDINE TARTRATE 0.1% OPHTHALMIC 5 ML BOTTLE OD SCH ×2 (13:28→23:09)
[2023-03-26] MEDS: AMINO ACIDS/PROTEIN HYDROLYS 30 ML LIQUID.PKT PO SCH ×2 (17:38→17:40)
[2023-03-26] MEDS: LATANOPROST 0.005% OPHTH SOLN 2.5ML BOTTLE OU SCH (23:09)
[2023-03-26] MEDS: MIRTAZAPINE 15 MG TABLET (FP) PO SCH (23:14)
[2023-03-27] MEDS: MEMANTINE HCL 5 MG TABLET (UD) PO SCH ×2 (12:03→23:33)
[2023-03-27] MEDS: ASCORBIC ACID 250 MG TABLET (FP) PO SCH (12:03)
[2023-03-27] MEDS: CITALOPRAM HYDROBROMIDE 20 MG TABLET PO SCH (12:03)
[2023-03-27] MEDS: AMINO ACIDS/PROTEIN HYDROLYS 30 ML LIQUID.PKT PO SCH ×2 (12:04→17:21)
[2023-03-27] MEDS: MULTIVIT-MINERALS ORAL LIQUID PO SCH (12:04)
[2023-03-27] MEDS: MEGESTROL ACETATE 400 MG/10 ML UNIT DOSE CUP PO SCH ×2 (12:04→23:33)
[2023-03-27] MEDS: BRIMONIDINE TARTRATE 0.1% OPHTHALMIC 5 ML BOTTLE OD SCH ×2 (12:47→23:33)
[2023-03-27] MEDS: DORZOLAMIDE 2% HCL OPHTHALMIC SOLUTION 10 ML BOTTLE OD SCH ×2 (12:48→23:33)
[2023-03-27] MEDS: MIRTAZAPINE 15 MG TABLET (FP) PO SCH (23:33)
[2023-03-27] MEDS: LATANOPROST 0.005% OPHTH SOLN 2.5ML BOTTLE OU SCH (23:34)
[2023-03-28] MEDS: MULTIVIT-MINERALS ORAL LIQUID PO SCH ×2 (11:16→11:44)
[2023-03-28] MEDS: MEGESTROL ACETATE 400 MG/10 ML UNIT DOSE CUP PO SCH ×3 (11:21→22:13)
[2023-03-28] MEDS: AMINO ACIDS/PROTEIN HYDROLYS 30 ML LIQUID.PKT PO SCH ×3 (11:21→17:17)
[2023-03-28] MEDS: MEMANTINE HCL 5 MG TABLET (UD) PO SCH ×3 (11:22→22:13)
[2023-03-28] MEDS: CITALOPRAM HYDROBROMIDE 20 MG TABLET PO SCH ×2 (11:22→11:44)
[2023-03-28] MEDS: ASCORBIC ACID 250 MG TABLET (FP) PO SCH ×2 (11:22→11:45)
[2023-03-28] MEDS: BRIMONIDINE TARTRATE 0.1% OPHTHALMIC 5 ML BOTTLE OD SCH ×2 (11:29→22:12)
[2023-03-28] MEDS: DORZOLAMIDE 2% HCL OPHTHALMIC SOLUTION 10 ML BOTTLE OD SCH ×2 (11:29→22:12)
[2023-03-28] MEDS ORDERED: EPOETIN ALFA-EPBX 4,000 UNIT/ML VIAL SQ ONE (21:51)
[2023-03-28] MEDS ORDERED: SODIUM CHLORIDE 250 ML IV PRN (21:51)
[2023-03-28] MEDS: MIRTAZAPINE 15 MG TABLET (FP) PO SCH (22:13)
[2023-03-28] MEDS: LATANOPROST 0.005% OPHTH SOLN 2.5ML BOTTLE OU SCH (22:19)
[2023-03-29] MEDS: AMINO ACIDS/PROTEIN HYDROLYS 30 ML LIQUID.PKT PO SCH (08:48)
[2023-03-29] MEDS: ASCORBIC ACID 250 MG TABLET (FP) PO SCH (10:15)
[2023-03-29] MEDS: CITALOPRAM HYDROBROMIDE 20 MG TABLET PO SCH (10:15)
[2023-03-29] MEDS: MEMANTINE HCL 5 MG TABLET (UD) PO SCH (10:15)
[2023-03-29] MEDS: MEGESTROL ACETATE 400 MG/10 ML UNIT DOSE CUP PO SCH (10:15)
[2023-03-29] MEDS: MULTIVIT-MINERALS ORAL LIQUID PO SCH (10:15)
[2023-03-29] MEDS: BRIMONIDINE TARTRATE 0.1% OPHTHALMIC 5 ML BOTTLE OD SCH (10:16)
[2023-03-29] MEDS: DORZOLAMIDE 2% HCL OPHTHALMIC SOLUTION 10 ML BOTTLE OD SCH (10:16)
[2023-03-29 11:32] VITALS: BP 134/76; PULSE 112; RESP 20; TEMP 97.7
== END 2023-03-29 12:33 | disposition hospice, inpatient (51) | DRG 252 ==
LOC: JER 13:31 → JERBED 18:28 → J6S 22:17
PROVIDERS: ADMIT Internal Medicine; ATTEND Internal Medicine
PROC: 30233N1 Transfusion of Nonautologous Red Blood Cells into Peripheral Vein, Percutaneous Approach (ICD-10-PCS; 2023-03-04)
PROC: 5A1D70Z Performance of Urinary Filtration, Intermittent, Less than 6 Hours Per Day (ICD-10-PCS; 2023-03-05)
PROC: 03170JD Bypass Right Brachial Artery to Upper Arm Vein with Synthetic Substitute, Open Approach (ICD-10-PCS; 2023-03-07)
PROC: B51MYZZ Fluoroscopy of Right Upper Extremity Veins using Other Contrast (ICD-10-PCS; 2023-03-07)
PROC: 0JH63XZ Insertion of Tunneled Vascular Access Device into Chest Subcutaneous Tissue and Fascia, Percutaneous Approach (ICD-10-PCS; 2023-03-14)
PROC: B50WYZZ Plain Radiography of Dialysis Shunt/Fistula using Other Contrast (ICD-10-PCS; 2023-03-14)
PROC: 03LY0ZZ Occlusion of Upper Artery, Open Approach (ICD-10-PCS; principal; 2023-03-14 13:30)
DX: T82.7XXA Infection and inflammatory reaction due to other cardiac and vascular devices, implants and grafts, initial encounter (principal); E43 Unspecified severe protein-calorie malnutrition; N18.6 End stage renal disease; R53.2 Functional quadriplegia; I27.82 Chronic pulmonary embolism; Z68.1 Body mass index [BMI] 19.9 or less, adult; R64 Cachexia; G30.9 Alzheimer's disease, unspecified; F02.80 Dementia in other diseases classified elsewhere, unspecified severity, without behavioral disturbance, psychotic disturbance, mood disturbance, and anxiety; D64.9 Anemia, unspecified; Y83.9 Surgical procedure, unspecified as the cause of abnormal reaction of the patient, or of later complication, without mention of misadventure at the time of the procedure; R62.7 Adult failure to thrive
CPT/HCPCS: 36415; 36430; 71045-TC-FY; 76000-TC-FY; 80048; 80053; 82272; 82728; 82962; 83540; 83550; 84100; 84132; 85025; 85027; 85610; 85730; 86705; 86706; 86803; 86850; 86900; 86901; 86922; 87040; 87340; 87635; 93005; 93010; 93986; 94760; 97116-GP; 97162-GP; 99285-25; C1750; C1757; C1874; J1644; P9058; Q5106